=== PATIENT | male | born 1980 | race Caucasian/White ===

== ENCOUNTER → 2021-07-04 10:56 | Outpatient (CLI) | payer OTHER, SELFPAY ==
--- NOTE | ~2021-07-04 | XR_ITS ---
EXAMINATION: XR thoracic spine 3V DATE: 07/04/2021 11:14 INDICATION: Thoracic back pain and left-sided mid spine numbness TECHNIQUE: One AP, lateral and lateral swimmer's views of the thoracic spine were obtained. COMPARISON: 07/28/2008 FINDINGS: Negligible mid thoracic dextrocurvature. Sagittal alignment is normal. Vertebral body and disc height s are normal. Visual is portions of the lungs are clear. Cardiomediastinal silhouette is normal. IMPRESSION: 1. Negligible mid thoracic dextrocurvature. Otherwise unremarkable thoracic spine radiographs. Reviewed, dictated and finalized at location A. IMPRESSION: 1. Negligible mid thoracic dextrocurvature. Otherwise unremarkable thoracic spi ne radiographs.
== END ==
PROVIDERS: PCP Family Medicine; Visit Provider Family Medicine
DX: M54.6 Pain in thoracic spine (principal)
CPT/HCPCS: 72072

== ENCOUNTER → 2022-04-03 10:29 | Outpatient (CLI) | payer OTHER, SELFPAY ==
--- NOTE | ~2022-04-03 | XR_ITS ---
EXAM: [id number] DATE: 04/03/2022 10:46 HISTORY: Injury to ribs,pain . COMPARISON: None available. FINDINGS: Lungs are clear. Normal cardiomediastinal silhouette. Normal mineralization. No fracture or dislocation. No lytic or blastic lesion. Joint spaces are maintained. Soft tissues within normal mckeon its. IMPRESSION: No acute osseous finding in the left ribs. Reviewed, dictated and finalized at location K.
== END ==
PROVIDERS: PCP Family Medicine; Visit Provider Family Medicine
DX: R07.81 Pleurodynia (principal)
CPT/HCPCS: 71101

== ENCOUNTER 2023-12-12 01:20 | Day surgery (SDC) | payer BC, SELFPAY ==
[2023-11-18 10:11] VITALS: BMI 29.4
--- NOTE | 2023-12-09 12:40 | SUR.PREOP ---
Patient called regarding upcoming procedure. Reviewed preop instructions, appointment times, and procedure prep.
[2023-12-12 06:58] VITALS: BP 144/91; PULSE 101; RESP 18; TEMP 36.5; O2SAT 99
[2023-12-12] MEDS: LACTATED RINGERS 1,000 ML 150 ML IV CONT (07:15)
--- NOTE | 2023-12-12 07:48 | WPDANESEPPF ---
Anes - Initial Pre Proc Eval Procedure: Operation Date: 12/12/23 08:00 Proposed Procedures p Screening Colonoscopy - Ludin Gonsalez MD Date/Time: 12/12/23 07:48 Surgeon: Ludin Gonsalez MD Pre Op Diagnosis: neoplasm screening Patient Data Age: 43 Gender: M Height: 1.78 m Weight: 93.4 kg Last Vital Signs Temp 97.7 F 12/12/23 06:58 Pulse 101 H 12/12/23 06:58 Resp 18 12/12/23 06:58 BP 144/91 H 12/12/23 06:58 Pulse Ox 99 12/12/23 06:58 O2 Del Method Room Air 12/12/23 06:58 Allergies Allergy/AdvReac Type Severity Reaction Status Date / Time No Known Allergies Allergy Mild Verified 12/12/23 06:54 Home Medications Medication Instructions Recorded Confirmed Type lisinopril 10 mg tablet See Rx Instructions .Route 10/31/23 12/12/23 Rx .COMPLEX #90 tabs triamcinolone acetonide 0.1 % 1 applic topical PRN PRN Skin 11/18/23 12/12/23 History topical cream Irritation Patient hx anesthesia problems: none Family hx anesthesia problems: none Results Review: All pre-operative results and documents have been reviewed as part of the pre-operative evaluation. [facility] Past Medical History Medical History (Updated 09/09/23 @ 15:24 by Bandar Dorsey MD) Abnormal liver function tests Essential (primary) hypertension Surgical History Surgical History (Updated 09/09/23 @ 15:24 by Bandar Dorsey MD) History of carpal tunnel release 2016 Family History Family History (Updated 09/09/23 @ 15:26 by Bandar Dorsey MD) Father Diabetes mellitus Multiple myeloma Mother No problems noted. Social History Social History (Updated 09/09/23 @ 15:08 by Cira Euceda MA) Smoking packs per day: 0.5 Smoking cigarettes per day: 10.0 Years smoked: 12 Smoking pack-years: 6.00 Smoking status: Former smoker Smoking end date: 10/10/13 Alcohol intake: current Drinks per week: 8 Substance use: never Substance use type: does not use Lack of Transportation: No Lack of Food: Never True Current Housing: I Have Housing Concerned About Future Housing: No Difficulty Paying Gas/Electric Bills: No Difficulty Paying for Meds: No Currently Unemployed: No Education: Trade/Vocational Certificate Difficulty w/ Childcare or Family Care: No Living arrangements: with family Occupation/Education: occupation Gender identity (if verbalized by the patient): Male Sexual Orientation (if Verbalized by the Patient): Straight or Heterosexual Spiritual care concerns: No Anes - Eval Final PreProcedure Day of Procedure 12/12/23 07:48 Patient weight: normal Heart: regular rate and rhythm Lungs: clear to auscultation Airway: Mallampati scale class II Neurological: alert and oriented Last oral intake: >/= 8 hours ASA classification: II Emergent: no Anesthetic plan: proceed Anesthesia type and monitoring: general GIVS and standard monitoring Results Review: All pre-operative results and documents have been reviewed as part of the pre-operative evaluation. Informed Consent: The patient's anesthetic plan and its attendant risks and benefits were discussed with the patient/family/POA. Questions were solicited and answers provided to the satisfaction of the patient/family/POA.
--- NOTE | 2023-12-12 07:52 | PM.HPGS ---
History of Present Illness History of Present Illness Consent: Risks, benefits, and alternatives have been discussed and questions answered. Patient agrees to proceed with procedure. Chief complaint: neoplasm screening Narrative: Andrade Correa is a 43 year old male here for first screening colonoscopy Review of Systems Constitutional: Constitutional: Denies headache(s) and Denies weakness Eyes: Eyes: Denies blurry vision ENT: Reports Normal hearing present, Denies headache(s) and Denies neck pain Cardiovascular: Cardiovascular: Denies chest pain and Denies dyspnea Respiratory: Respiratory: Denies dyspnea Gastrointestinal: Gastrointestinal: Reports no additional gastrointestinal complaints Genitourinary: Genitourinary: Denies dysuria Musculoskeletal: Musculoskeletal: Denies neck pain Integumentary/Breasts: Skin/Breast: Denies dry skin Neurologic: Reports Normal hearing present, Denies headache(s) and Denies weakness Psychiatric: Psychiatric: Denies anxiety Endocrine: Endocrine: Denies change in body appearance Hematologic/Lymphatic: Hematologic/Lymphatic: Denies easy bleeding Allergic/Immunologic: Allergic/Immunologic: Denies urticaria PMF Past Medical History Medical History (Updated 12/12/23 @ 07:52 by Ludin Gonsalez MD) Abnormal liver function tests Colon cancer screening Essential (primary) hypertension Surgical History Surgical History (Updated 09/09/23 @ 15:24 by Bandar Dorsey MD) History of carpal tunnel release 2017 Family History Family History (Updated 09/09/23 @ 15:26 by Bandar Dorsey MD) Father Diabetes mellitus Multiple myeloma Mother No problems noted. Social History Social History (Updated 09/09/23 @ 15:08 by Cira Euceda MA) Smoking packs per day: 0.5 Smoking cigarettes per day: 10.0 Years smoked: 12 Smoking pack-years: 6.00 Smoking status: Former smoker Smoking end date: 10/10/13 Alcohol intake: current Drinks per week: 8 Substance use: never Substance use type: does not use Lack of Transportation: No Lack of Food: Never True Current Housing: I Have Housing Concerned About Future Housing: No Difficulty Paying Gas/Electric Bills: No Difficulty Paying for Meds: No Currently Unemployed: No Education: Trade/Vocational Certificate Difficulty w/ Childcare or Family Care: No Living arrangements: with family Occupation/Education: occupation Gender identity (if verbalized by the patient): Male Sexual Orientation (if Verbalized by the Patient): Straight or Heterosexual Spiritual care concerns: No Meds Home Medications and Allergies Home Medications Medication Instructions Recorded Confirmed Type lisinopril 10 mg tablet See Rx Instructions .Route 10/31/23 12/12/23 Rx .COMPLEX #90 tabs triamcinolone acetonide 0.1 % 1 applic topical PRN PRN Skin 11/18/23 12/12/23 History topical cream Irritation Allergies Allergy/AdvReac Type Severity Reaction Status Date / Time No Known Allergies Allergy Mild Verified 12/12/23 06:54 Vital Signs Vital Signs - 24 hr 12/12/23 06:58 Temperature 97.7 F Pulse Rate 101 H Respiratory Rate 18 Blood Pressure 144/91 H Pulse Oximetry 99 Oxygen Delivery Room Air Exam Const: General: comfortable and no acute distress HENMT: Face/Nose/Sinus: Normal nares present Eyes: General: appearance normal, both eyes and all related structures Neck: Neck: no JVD Resp: Auscultation: clear to auscultation bilaterally Cardio: Rate: regular rate Rhythm: regular rhythm GI: Inspection: non-distended GI Palp: Yes Soft to palpation Skin: General skin exam: normal color Neuro: General: gait normal Speech: normal speech Extrem: General: normal to inspection Psych: Mental Status: mental status grossly normal Assessment and Plan Assessment and plan (1) Colon cancer screening: Code(s): Z12.11 - Encounter for screening for
[2023-12-12 08:17] VITALS: BP 119/81; PULSE 90; RESP 30; O2SAT 96
[2023-12-12 08:27] VITALS: BP 130/89; PULSE 90; RESP 28; O2SAT 99
[2023-12-12 08:37] VITALS: BP 124/86; PULSE 85; RESP 14; O2SAT 100
== END 2023-12-12 08:44 | disposition home or self-care (01) ==
PROVIDERS: PCP Family Medicine; Visit Provider Internal Medicine Gastroenterology
PROC: 0DJD8ZZ Inspection of Lower Intestinal Tract, Via Natural or Artificial Opening Endoscopic (ICD-10-PCS; CPT 45378; principal; 2023-12-12 08:00)
DX: Z12.11 Encounter for screening for malignant neoplasm of colon (principal); D12.3 Benign neoplasm of transverse colon; K57.30 Diverticulosis of large intestine without perforation or abscess without bleeding; I10 Essential (primary) hypertension; Z98.890 Other specified postprocedural states; Z87.891 Personal history of nicotine dependence
CPT/HCPCS: 45385; 88305; J2704; J7120